=== PATIENT | female | born 1940 | race Caucasian/White ===

== ENCOUNTER 2018-03-30 09:27 | Day surgery (SDC) | payer MEDICARE, OTHER ==
[~2018-03-30 09:27] MED LIST: Cefuroxime 10 MG/ML SYRINGE EYELF SCH; Lidocaine 1% PF 2 ML SDV INJECT SCH; Pilocarpine 4% Ophth Soln 15 ML Bot EYELF SCH
[2018-03-30] MEDS: Polymyxin B/Trimethoprim 10 ML Bottle EYELF SCH ×3 (10:08→11:48)
[2018-03-30] MEDS: Brimonidine 0.2% Ophth Soln 5 ML Bottle EYELF SCH ×3 (10:14→11:48)
[2018-03-30] MEDS: Phenylephrine 2.5% Ophth Soln 2 ML Bot EYELF SCH ×5 (10:18→11:28)
[2018-03-30] MEDS: Tropicamide 1% Ophth Soln 3 ML Bottle EYELF SCH ×4 (10:23→11:07)
--- NOTE | 2018-03-30 10:34 | PCM.PREANE ---
Preanesthetic Assessment - Procedure Proposed Procedure: left eye cataract extraction with implant - Anesthesia/Transfusion/Family Hx Anesthesia History: Prior Anesthesia Without Reaction Family History of Anesthesia Reaction: No Transfusion History: No Prior Transfusion(s) Intubation History: Unknown - Review of Systems General: No Symptoms Pulmonary: No Symptoms Cardiovascular: No Symptoms Gastrointestinal: No Symptoms Neurological: No Symptoms Other: Reports: None - Physical Assessment NPO Status Date: 03/29/18 NPO Status Time: 18:00 O2 Sat by Pulse Oximetry: 95 Respiratory Rate: 16 Vital Signs: Last Vital Signs Temp 36.9 C 03/30/18 10:00 Pulse 63 03/30/18 10:00 Resp 16 03/30/18 10:00 BP 125/62 03/30/18 10:00 Pulse Ox 95 03/30/18 10:00 Height: 1.5 m Weight: 81.647 kg ASA Class: 2 Mental Status: Alert & Oriented x3 Airway Class: Mallampati = 2 Dentition: Reports: Normal Dentition, Missing Tooth/Teeth Thyro-Mental Finger Breadths: 3 Mouth Opening Finger Breadths: 5 ROM/Head Extension: Full Lungs: Clear to Auscultation, Normal Respiratory Effort Cardiovascular: Regular Rate, Regular Rhythm - Allergies Allergies/Adverse Reactions: Allergies Allergy/AdvReac Type Severity Reaction Status Date / Time No Known Allergies Allergy Verified 03/22/18 13:31 - Blood Blood Available: No - Acknowledgements Anesthesia Type Planned: MAC Pt an Appropriate Candidate for the Planned Anesthesia: Yes Alternatives and Risks of Anesthesia Discussed w Pt/Guardian: Yes Pt/Guardian Understands and Agrees with Anesthesia Plan: Yes PreAnesthesia Questionnaire - HOME MEDS Home Medications: Home Meds Enalapril Maleate 10 mg PO DAILY 03/30/18 [History] Metoprolol Succinate 100 mg PO DAILY 03/30/18 [History] - CURRENT (IN HOUSE) MEDS Current Meds: Current Medications Brimonidine Tartrate (Alphagan 0.2% Oph Soln) 0 ml EYELF ASDIRECTED CAMERON Stop: 03/30/18 18:00 Last Admin: 03/30/18 10:14 Dose: 1 drop Cefuroxime Sodium (Zinacef) 0 mg EYELF ASDIRECTED CAMERON Stop: 03/30/18 18:00 Lidocaine HCl (Xylocaine-Mpf 1%) 0 ml INJECT ASDIRECTED CAMERON Stop: 03/30/18 18:00 Phenylephrine HCl (Luke-Synephrine 2.5% Ophth Soln) 0 ml EYELF ASDIRECTED CAMERON Stop: 03/30/18 18:00 Last Admin: 03/30/18 10:18 Dose: 1 drop Pilocarpine HCl (Pilocar 4% Ophth Soln) 0 ml EYELF ASDIRECTED CAMERON Stop: 03/30/18 18:00 Polymyxin/Trimethoprim Sulfate (Polytrim Ophth Soln) 0 ml EYELF ASDIRECTED CAMERON Stop: 03/30/18 18:00 Last Admin: 03/30/18 10:08 Dose: 1 drop Tetracaine HCl (Tetracaine 0.5% Steri-Unit Maura) 0 ml EYELF ASDIRECTED CAMERON Stop: 03/30/18 18:00 Tropicamide (Mydriacyl 1% Ophth Soln) 0 ml EYELF ASDIRECTED CAMERON Stop: 03/30/18 18:00 Last Admin: 03/30/18 10:23 Dose: 1 drop
[2018-03-30] MEDS: Tetracaine HCl/PF 0.5% 4 ML Bottle EYELF SCH ×2 (11:15→11:35)
--- NOTE | 2018-03-30 12:05 | PCM48HPAN ---
Post Anesthesia Note - EVALUATION WITHIN 48HRS OF ANESTHETIC Vital Signs in Normal Range: Yes Patient Participated in Evaluation: Yes Respiratory Function Stable: Yes Airway Patent: Yes Cardiovascular Function Stable: Yes Pulse Rate: 68 SaO2: 99 Resp Rate: 16 Temperature: 37 C Blood Pressure: 133/63 Pulse Rate: 68
== END 2018-03-30 12:03 | disposition home or self-care (01) ==
LOC: JD.SDS 09:27
PROVIDERS: ATTEND Ophthalmology
DX: H25.813 Combined forms of age-related cataract, bilateral (principal); H40.003 Preglaucoma, unspecified, bilateral; H35.3131 Nonexudative age-related macular degeneration, bilateral, early dry stage; H16.223 Keratoconjunctivitis sicca, not specified as Sjogren's, bilateral; H16.103 Unspecified superficial keratitis, bilateral; H02.834 Dermatochalasis of left upper eyelid; H02.831 Dermatochalasis of right upper eyelid; I10 Essential (primary) hypertension; Z79.899 Other long term (current) drug therapy; Z98.890 Other specified postprocedural states
CPT/HCPCS: A9270-GY; C1780; J0697; J2001

== ENCOUNTER 2018-04-27 08:32 | Day surgery (SDC) | payer MEDICARE, OTHER ==
[~2018-04-27 08:32] MED LIST changes: -Cefuroxime 10 MG/ML SYRINGE EYELF SCH; -Pilocarpine 4% Ophth Soln 15 ML Bot EYELF SCH
[2018-04-27] MEDS ORDERED: Cefuroxime 10 MG/ML SYRINGE EYERT SCH (08:45)
[2018-04-27] MEDS ORDERED: Pilocarpine 4% Ophth Soln 15 ML Bot EYERT SCH (08:45)
[2018-04-27] MEDS: Polymyxin B/Trimethoprim 10 ML Bottle EYERT SCH ×3 (09:35→11:23)
[2018-04-27] MEDS: Brimonidine 0.2% Ophth Soln 5 ML Bottle EYERT SCH ×3 (09:40→11:23)
[2018-04-27] MEDS: Phenylephrine 2.5% Ophth Soln 2 ML Bot EYERT SCH ×5 (09:45→10:59)
[2018-04-27] MEDS: Tropicamide 1% Ophth Soln 3 ML Bottle EYERT SCH ×4 (09:51→10:41)
--- NOTE | 2018-04-27 09:52 | PCM.PREANE ---
Preanesthetic Assessment - Procedure Proposed Procedure: Right eye cataract extraction with IOL - Anesthesia/Transfusion/Family Hx Anesthesia History: Prior Anesthesia Without Reaction Family History of Anesthesia Reaction: No Transfusion History: No Prior Transfusion(s) Intubation History: Unknown - Review of Systems General: No Symptoms Pulmonary: No Symptoms Cardiovascular: Other (HTN) Gastrointestinal: No Symptoms Neurological: No Symptoms Other: Reports: None - Physical Assessment NPO Status Date: 04/26/18 NPO Status Time: 18:00 O2 Sat by Pulse Oximetry: 98 Respiratory Rate: 16 Vital Signs: Last Vital Signs Temp 36.7 C 04/27/18 09:27 Pulse 56 L 04/27/18 09:27 Resp 16 04/27/18 09:27 BP 133/55 L 04/27/18 09:27 Pulse Ox 98 04/27/18 09:27 Height: 1.5 m Weight: 77.111 kg ASA Class: 2 Mental Status: Alert & Oriented x3 Airway Class: Mallampati = 2 Dentition: Reports: Normal Dentition Thyro-Mental Finger Breadths: 3 Mouth Opening Finger Breadths: 3 ROM/Head Extension: Full Lungs: Clear to Auscultation, Normal Respiratory Effort Cardiovascular: Regular Rate, Regular Rhythm - Allergies Allergies/Adverse Reactions: Allergies Allergy/AdvReac Type Severity Reaction Status Date / Time No Known Allergies Allergy Verified 03/22/18 13:31 - Blood Blood Available: No Product(s) Available: None - Anesthesia Plan Pre-Op Medication Ordered: None Beta Dimitrios: Metoprolol Med Last Dose Date: 04/26/18 Med Last Dose Time: 18:00 - Acknowledgements Anesthesia Type Planned: MAC Pt an Appropriate Candidate for the Planned Anesthesia: Yes Alternatives and Risks of Anesthesia Discussed w Pt/Guardian: Yes Pt/Guardian Understands and Agrees with Anesthesia Plan: Yes PreAnesthesia Questionnaire - HOME MEDS Home Medications: Home Meds Enalapril Maleate 10 mg PO DAILY 03/30/18 [History] Metoprolol Succinate 100 mg PO DAILY 03/30/18 [History] Calcium Carbonate [Calcium] 1 tab PO DAILY 04/27/18 [History] Multivitamin [Multivitamins] 1 cap PO DAILY 04/27/18 [History] - CURRENT (IN HOUSE) MEDS Current Meds: Current Medications Brimonidine Tartrate (Alphagan 0.2% Oph Sol) 0 ml EYERT ASDIRECTED CAMERON Stop: 04/27/18 19:00 Last Admin: 04/27/18 09:40 Dose: 1 drop Cefuroxime Sodium (Zinacef) 0 mg EYERT ASDIRECTED CAMERON Stop: 04/27/18 19:00 Lidocaine HCl (Xylocaine-Mpf 1%) 0 ml INJECT ASDIRECTED CAMERON Stop: 04/27/18 19:00 Phenylephrine HCl (Luke-Synephrine 2.5% Ophth Soln) 0 ml EYERT ASDIRECTED CAMERON Stop: 04/27/18 19:00 Last Admin: 04/27/18 09:45 Dose: 1 drop Pilocarpine HCl (Pilocar 4% Ophth Soln) 0 ml EYERT ASDIRECTED CAMERON Stop: 04/27/18 19:00 Polymyxin/Trimethoprim Sulfate (Polytrim Ophth Soln) 0 ml EYERT ASDIRECTED CAMERON Stop: 04/27/18 19:00 Last Admin: 04/27/18 09:35 Dose: 1 drop Tetracaine HCl (Tetracaine 0.5% Steri-Unit Maura) 0 ml EYERT ASDIRECTED CAMERON Stop: 04/27/18 19:00 Tropicamide (Mydriacyl 1% Ophth Soln) 0 ml EYERT ASDIRECTED CAMERON Stop: 04/27/18 19:00
[2018-04-27] MEDS: Tetracaine HCl/PF 0.5% 4 ML Bottle EYERT SCH ×2 (10:49→11:04)
--- NOTE | 2018-04-27 11:30 | PCM48HPAN ---
Post Anesthesia Note - EVALUATION WITHIN 48HRS OF ANESTHETIC Vital Signs in Normal Range: Yes Patient Participated in Evaluation: Yes Respiratory Function Stable: Yes Airway Patent: Yes Cardiovascular Function Stable: Yes Hydration Status Stable: Yes Pain Control Satisfactory: Yes Nausea and Vomiting Control Satisfactory: Yes Mental Status Recovered: Yes Pulse Rate: 66 SaO2: 100 Resp Rate: 17 Temperature: 98.3 F Blood Pressure: 134/64
== END 2018-04-27 11:33 | disposition home or self-care (01) ==
LOC: JD.SDS 08:32
PROVIDERS: ATTEND Ophthalmology
DX: H25.811 Combined forms of age-related cataract, right eye (principal); H35.3131 Nonexudative age-related macular degeneration, bilateral, early dry stage; H35.363 Drusen (degenerative) of macula, bilateral; H16.223 Keratoconjunctivitis sicca, not specified as Sjogren's, bilateral; H16.103 Unspecified superficial keratitis, bilateral; I10 Essential (primary) hypertension; Z98.42 Cataract extraction status, left eye; Z96.1 Presence of intraocular lens; Z79.899 Other long term (current) drug therapy
CPT/HCPCS: 66984; C1780; J0697; J2001; A9270-GY

== ENCOUNTER 2021-02-26 10:14 | Emergency (ER) | payer MEDICARE, OTHER ==
--- NOTE | 2021-02-26 10:39 | EDM.PDOC ---
ED HPI GENERAL MEDICAL PROBLEM - General Chief Complaint: Neuro Symptoms/Deficits Stated Complaint: POSS STROKE/EYE COMPLAINT Time Seen by Provider: 02/26/21 10:30 Source of Information: Reports: Patient History Limitations: Reports: No Limitations - History of Present Illness INITIAL COMMENTS - FREE TEXT/NARRATIVE: 80-year-old female presents to the ED recognizing that there is been a change in her visual carballo over the last 24 hours. She believes it started yesterday morning somewhere between 9 and 10:00. She also appreciated when she had her first drink a coffee yesterday morning about 10:00 that she was leaking some coffee out the left side of her face. She states she could drive last night but the street signs did not seem quite normal. She denies any vertigo or headache. No recent falls or closed head injuries. She noticed no weakness in her upper extremities and she is right side dominant. No problems coordinating ability to feed herself. She has no past history of CVA. She wears eyeglasses. This morning things are perhaps a bit worse with her visual field status. She cannot comment that she is missing any one portion of the visual field. She does suffer from primary hypertension .No history of irregular heartbeat or atrial fibrillation. Onset: Sudden Onset Date: 02/26/21 (History suggest she had symptoms yesterday morning probably after awakening. They persisted throughout the day and are perhaps worse today.) Duration: Hour(s):, Getting Worse (Wren acuity seems to be getting worse on the right side.) Location: Reports: Face (Field changes particularly right eye. Mild right facial weakness) Quality: Reports: Other (No pain.) Severity: Mild (Mild visual field changes in the right eye she thinks) Improves with: Reports: None Worsens with: Reports: None Context: Reports: Other (Spontaneous occurrence noted yesterday morning). Denies: Activity, Exercise, Lifting, Sick Contact, Trauma Associated Symptoms: Reports: Weakness (Mild right facial weakness with smiling face pulls to the right). Denies: Confusion, Chest Pain ( or getting up for the day.), Cough, cough w sputum, Diaphoresis, Fever/Chills, Headaches, Loss of Appetite, Malaise, Nausea/Vomiting, Rash, Seizure, Shortness of Breath, Syncope Treatments MEDICAL LAB TECHNOLOGIST: Reports: Other (see below) - Related Data Allergies Allergy/AdvReac Type Severity Reaction Status Date / Time No Known Allergies Allergy Verified 02/26/21 10:26 Home Meds: Home Meds Enalapril Maleate 10 mg PO DAILY 03/30/18 [History] Metoprolol Succinate 100 mg PO DAILY 03/30/18 [History] Calcium Carbonate [Calcium] 1 tab PO DAILY 04/27/18 [History] Multivitamin [Multivitamins] 1 cap PO DAILY 04/27/18 [History] Mineral Oil/Petrolatum Oint [Lacri-Lube S.O.P Oint] 3.5 gm .XX DAILY #1 tube 02/26/21 [Rx] predniSONE [Prednisone] 20 mg PO BID #14 tablet 02/26/21 [Rx] valACYclovir [Valtrex] 1,000 mg PO TID #21 tab 02/26/21 [Rx] Past Medical History Cardiovascular History: Reports: Hypertension Social & Family History - Tobacco Use Tobacco Use Status *Q: Never Tobacco User - Recreational Drug Use Recreational Drug Use: No - Living Situation & Occupation Living situation: Reports: Occupation: Retired ED ROS GENERAL - Review of Systems Review Of Systems: See Below Constitutional: Denies: Fever, Chills, Malaise, Weakness, Fatigue, Decreased Appetite, Weight Loss HEENT: Reports: Glasses, Other (You will feel changes since yesterday morning.) Respiratory: Reports: No Symptoms Cardiovascular: Reports: Blood Pressure Problem Endocrine: Reports: No Symptoms GI/Abdominal: Reports: Constipation (Problems with constipation.) : Reports: Frequency, Incontinence (Mostly urge) Musculoskeletal: Reports: Neck Pain, Shoulder Pain, Back Pain, Joint Pain Skin: Reports: No Symptoms (At times.) Neurological: Reports: Weakness. Denies: Confusion, Dizziness, Headache, Numbness, Paresthesia, Pre-Existing Deficit, Syncope, Tingling, Tremors (Right hemifacial weakness appreciated yesterday morning.), Trouble Speaking Psychiatric: Reports: No Symptoms Hematologic/Lymphatic: Reports: No Symptoms Immunologic: Reports: No Symptoms ED EXAM, NEURO - Physical Exam Exam: See Below Exam Limited By: No Limitations General Appearance: Alert, WD/WN, No Apparent Distress, Other (Temperature is 36.3 degrees. Heart rate is 93 and sinus respiratory is 12 with O2 sats of 100%. BP elevated 1 9678 at time of initial exam. ) Eye Exam: Bilateral Eye: Normal Inspection (No scleral icterus or blepharal pallor.), PERRL (No gaze palsy) Throat/Mouth: Normal Inspection, Normal Lips, Normal Teeth, Normal Oropharynx, Other (Uvula) Head Exam: Atraumatic, Normocephalic Neck: Normal Inspection, Supple, Non-Tender, Full Range of Motion. No: Carotid Bruit, Lymphadenopathy (L), Lymphadenopathy (R) Respiratory/Chest: No Respiratory Distress, Lungs Clear, Normal Breath Sounds, No Accessory Muscle Use, Chest Non-Tender Cardiovascular: Normal Peripheral Pulses, Regular Rate, Rhythm, No Edema, No G allop, No JVD, No Murmur, No Rub GI/Abdominal: Normal Bowel Sounds, Soft, Non-Tender, No Organomegaly, No Mass, Pelvis Stable, Rebound Neurological: Alert, Normal Mood/Affect, Normal Dorsiflexion, Normal Plantar Flexion, Normal Gait, Normal Reflexes, Oriented x 3, Other (She does have some mild right facial droop on attempt to smile. There is no pronator drift. [id number] evaluation is normal as was [id number]. A stroke alert had been called on this lady and therefore she was sent to CT. CT exam shows some calcification in both basal ganglia no signs of st). No: CN II-XII Intact, Babinski DTR: 0: Achilles (R), Achilles (L), 1+: Bicep (R), Bicep (L), Patella (R), Patella (L) Back Exam: Normal Inspection, Full Range of Motion, Other. No: CVA Tenderness (L), CVA Tenderness (R) Extremities: Normal Inspection (Mild increased lordosis lumbar spine), Normal Range of Motion, Non-Tender, No Pedal Edema Psychiatric: Normal Affect, Normal Mood Skin Exam: Warm, Dry, Intact, Normal Color, No Rash Course - Vital Signs Last Recorded V/S: Last Vital Signs Temp 36.3 C 02/26/21 10:19 Pulse 93 02/26/21 10:19 Resp 12 02/26/21 10:19 BP 196/78 H 02/26/21 10:19 Pulse Ox 100 02/26/21 10:19 - Orders/Labs/Meds Orders: Active Orders 24 hr Category Date Time Status URINALYSIS W/MICROSCOPIC [UA W/MICROSCOPIC] [URIN] Stat Lab 04/22/21 10:38 Ordered Labs: Laboratory Tests 02/26/21 02/26/21 02/26/21 Range/Units 10:24 10:25 10:25 WBC 7.34 (3.98-10.04) K/mm3 RBC 4.62 (3.98-5.22) M/mm3 Hgb 14.4 (11.2-15.7) gm/dl Hct 45.2 H (34.1-44.9) % MCV 97.8 H (79.4-94.8) fl MCH 31.2 (25.6-32.2) pg MCHC 31.9 L (32.2-35.5) g/dl RDW Std Deviation 48.0 H (36.4-46.3) fL Plt Count 120 L (182-369) K/mm3 MPV 11.7 (9.4-12.3) fl Neut % (Auto) 43.5 (34.0-71.1) % Lymph % (Auto) 36.5 (19.3-51.7) % Rains % (Auto) 12.4 (4.7-12.5) % Eos % (Auto) 6.5 H (0.7-5.8) Baso % (Auto) 0.7 (0.1-1.2) % Neut # (Auto) 3.19 (1.56-6.13) K/mm3 Lymph # (Auto) 2.68 (1.18-3.74) K/mm3 Rains # (Auto) 0.91 H (0.24-0.36) K/mm3 Eos # (Auto) 0.48 H (0.04-0.36) K/mm3 Baso # (Auto) 0.05 (0.01-0.08) K/mm3 Manual Slide Review Abnormal smear PT 10.5 (9.7-12.0) SECONDS INR 0.98 APTT 24.5 (21.7-31.4) SECONDS Sodium (136-145) mEq/L Potassium (3.5-5.1) mEq/L Chloride (98-107) mEq/L Carbon Dioxide (21-32) mEq/L Anion Gap (5-15) BUN (7-18) mg/dL Creatinine (0.55-1.02) mg/dL Est Cr Clr Drug Dosing mL/min Estimated GFR (MDRD) (>60) mL/min BUN/Creatinine Ratio (14-18) Glucose (83-115) mg/dL POC Glucose 125 H (70-99) mg/dL Calcium (8.5-10.1) mg/dL Magnesium (1.8-2.4) mg/dl Total Bilirubin (0.2-1.0) mg/dL AST (15-37) U/L ALT (14-59) U/L Alkaline Phosphatase (46-116) U/L Troponin I (0.00-0.056) ng/mL C-Reactive Protein (<1.0) mg/dL NT-Pro-B Natriuret Pep (0-450) pg/mL Total Protein (6.4-8.2) g/dl Albumin (3.4-5.0) g/dl Globulin gm/dL Albumin/Globulin Ratio (1-2) Triglycerides (<150) mg/dL Cholesterol (<200) mg/dL LDL Cholesterol Direct (<100) mg/dL HDL Cholesterol (40-59) mg/dL 02/26/21 02/26/21 Range/Units 10:25 10:25 WBC (3.98-10.04) K/mm3 RBC (3.98-5.22) M/mm3 Hgb (11.2-15.7) gm/dl Hct (34.1-44.9) % MCV (79.4-94.8) fl MCH (25.6-32.2) pg MCHC (32.2-35.5) g/dl RDW Std Deviation (36.4-46.3) fL Plt Count (182-369) K/mm3 MPV (9.4-12.3) fl Neut % (Auto) (34.0-71.1) % Lymph % (Auto) (19.3-51.7) % Rains % (Auto) (4.7-12.5) % Eos % (Auto) (0.7-5.8) Baso % (Auto) (0.1-1.2) % Neut # (Auto) (1.56-6.13) K/mm3 Lymph # (Auto) (1.18-3.74) K/mm3 Rains # (Auto) (0.24-0.36) K/mm3 Eos # (Auto) (0.04-0.36) K/mm3 Baso # (Auto) (0.01-0.08) K/mm3 Manual Slide Review PT (9.7-12.0) SECONDS INR APTT (21.7-31.4) SECONDS Sodium 137 (136-145) mEq/L Potassium 3.8 (3.5-5.1) mEq/L Chloride 99 (98-107) mEq/L Carbon Dioxide 29 (21-32) mEq/L Anion Gap 12.8 (5-15) BUN 14 (7-18) mg/dL Creatinine 1.0 (0.55-1.02) mg/dL Est Cr Clr Drug Dosing 31.69 mL/min Estimated GFR (MDRD) 53 (>60) mL/min BUN/Creatinine Ratio 14.0 (14-18) Glucose 126 H (83-115) mg/dL POC Glucose (70-99) mg/dL Calcium 9.8 (8.5-10.1) mg/dL Magnesium 2.6 H (1.8-2.4) mg/dl Total Bilirubin 0.8 (0.2-1.0) mg/dL AST 22 (15-37) U/L ALT 24 (14-59) U/L Alkaline Phosphatase 83 (46-116) U/L Troponin I < 0.017 (0.00-0.056) ng/mL C-Reactive Protein 0.4 (<1.0) mg/dL NT-Pro-B Natriuret Pep 140 (0-450) pg/mL Total Protein 8.0 (6.4-8.2) g/dl Albumin 3.9 (3.4-5.0) g/dl Globulin 4.1 gm/dL Albumin/Globulin Ratio 1.0 (1-2) Triglycerides 79 (<150) mg/dL Cholesterol 201 H (<200) mg/dL LDL Cholesterol Direct 98 (<100) mg/dL HDL Cholesterol 87.0 H (40-59) mg/dL - Radiology Interpretation Free Text/Narrative:: 80-year-old female presents to the ED for evaluation of visual field changes that she first noted yesterday morning shortly after getting up. She cannot define a definitive area of her visual field that is missing. She stated that road signs do not appear normal when driving. She has no vertigo symptoms. She appreciated that she was losing some fluid out the corner of her right mouth with drinking fluids yesterday. Exam reveals that she does have mild left hemifacial weakness with loss of the normal nasolabial fold. Mouth pulls to the right side with smiling. The remainder of the neuro exam is completely normal with no extremity muscle weakness or change in motor power and tone. Gait is normal. She will go for CT scan. Routine labs will be obtained. I will come back and have a look at the back of her eye with ophthalmoscopy as well as test her visual carballo and do a ultrasound of her eye to look at the retina. Pressure was a little high when she came in. He will be reassessed. - Re-Assessments/Exams Free Text/Narrative Re-Assessment/Exam: 02/26/21 11:05 CT of the head without contrast has been completed. This was because a stroke alert was called on this lady. There are no prior intracranial imaging studies available. Basal ganglia calcification is seen bilaterally. Ventricles along with the basal cisterns and sulci over the convexities are mildly prominent. No other abnormal parenchymal densities are seen. No evidence of intracranial hemorrhage is seen. No midline shift or mass-effect is seen. Bone window settings were reviewed. Visualized mastoid and paranasal sinuses show nothing acute. Atherosclerotic calcification is seen within the carotid siphon. No acute calvarial abnormalities appreciated. 02/26/21 11:18 Visual field examination the patient's visual carballo are normal in fact somewhat better than mine. There is no evidence of glaucoma. Intraocular pressure was 12 on the right and 13 on the left. Ultrasound of the eye shows no retinal detachment. Indirect ophthalmoscopy reveals a normal retina without any vitreal hemorrhages. She cannot close the left eye completely and the left side of her face is slightly drooping compatible with Selby's palsy as although the other cranial nerves are functioning normally. Plan will therefore be antiviral medicine valacyclovir 1 g 3 times daily for the next 7 days and prednisone 20 mg by mouth twice daily for the next 7 days as well. Advised follow-up with Dr. Faust her primary care physician in 7 to 8 days time. She will use Lubriderm in the left eye at nighttime and patch the eye closed to prevent drying of the cornea on the left side. Advised tears are natural or other artificial tears 2 drops to the left eye 3 times daily to prevent drying out of the eye. Departure - Departure Time of Disposition: 11:20 Disposition: Home, Self-Care 01 Condition: Fair Clinical Impression: Selby palsy - Discharge Information *PRESCRIPTION DRUG MONITORING PROGRAM REVIEWED*: Not Applicable *COPY OF PRESCRIPTION DRUG MONITORING REPORT IN PATIENT ELOISA: Not Applicable Prescriptions: Mineral Oil/Petrolatum Oint [Lacri-Lube S.O.P Oint] 3.5 gm .XX DAILY #1 tube predniSONE [Prednisone] 20 mg PO BID #14 tablet valACYclovir [Valtrex] 1,000 mg PO TID #21 tab Instructions: Selby Palsy, Adult Referrals: Angelito Faust MD [Primary Care Provider] - Forms: ED Department Discharge Additional Instructions: Evaluation in the emergency room today in regards to visual field changes in the left eye and noticeable drooping of the left side of your face this morning. Symptoms were present yesterday but were considered milder. It is appreciated on visual field examination that your visual carballo are normal but you are unable to close her left eye completely due to muscle weakness around the eye. Similar there is muscle weakness around the lips which makes it difficult for you to drink fluids as a will run out the left side of your face due to the left-sided facial muscle weakness. There are no signs of a stroke. CT scan of the brain is essentially normal for your age. Treatment is antiviral medication valacyclovir 1 g 3 times daily for the next 7 days to try and reduce the inflammation of the 7th cranial nerve which is swollen and inflamed due to viral infection. Use prednisone 20 mg twice daily usually with breakfast and supper for the next 7 days to help further reduce inflammation of the nerve. The most important thing is that we keep your left eye lubricated since you cannot close the eye completely it will dry out overnight as the eye may remain completely open. Place a small thin line of Lacri-Lube ointment along the inner lower eyelid at bedtime and tape your left eye closed as instructed in the ED until able to close her eye completely normally. This will likely be somewhere between 3 and 8 weeks. You may use artificial tears 2 drops to the left eye 3 times daily to maintain hydration of the eye. Sepsis Event Note (ED) - Evaluation Sepsis Screening Result: No Definite Risk - Focused Exam Vital Signs: Vital Signs Temp Pulse Resp BP Pulse Ox 02/26/21 10:19 36.3 C 93 12 196/78 H 100 - My Orders Last 24 Hours: My Active Orders 02/26/21 10:38 URINALYSIS W/MICROSCOPIC [UA W/MICROSCOPIC] [URIN] Stat - Assessment/Plan Last 24 Hours: My Active Orders 02/26/21 10:38 URINALYSIS W/MICROSCOPIC [UA W/MICROSCOPIC] [URIN] Stat
--- NOTE | 2021-02-26 10:48 | CT ---
Head CT Technique: Multiple axial sections through the brain were obtained. Reconstructed coronal and sagittal images were obtained. Intravenous contrast was not utilized. Comparison: No prior intracranial imaging is available. Findings: Basal ganglia calcification is seen. Ventricles along with basal cisterns and sulci over the convexities are mildly prominent. No other abnormal parenchymal densities are seen. No evidence of intracranial hemorrhage is seen. No midline shift or mass-effect is seen. Bone window settings were reviewed. Visualized mastoid and paranasal sinuses show nothing acute. Atherosclerotic calcification is seen within the carotid siphon. No acute calvarial abnormality is appreciated. Impression: 1. Findings believed to be incidental as noted above. 2. Nothing acute is appreciated on noncontrast head CT study. Diagnostic code #2
--- NOTE | 2021-02-26 11:08 | CR ---
Chest: Portable view of the chest was obtained. Comparison: No prior chest imaging is available. Heart size is normal. Slight tortuosity of the thoracic aorta is seen. Lungs are clear with no acute parenchymal change. Bony structures are osteopenic but show nothing acute. Impression: 1. Nothing acute is seen on portable chest x-ray. Diagnostic code #2
== END 2021-02-26 11:43 | disposition home or self-care (01) ==
LOC: JD.ED 10:14
DX: G51.0 Bell's palsy (principal)
CPT/HCPCS: 36415; 70450; 70450-26; 71045; 71045-26; 80053; 82465; 82947; 83718; 83721; 83735; 83880; 84478; 84484; 85025; 85610; 85730; 86140; 99284; 99284-25

== ENCOUNTER 2021-09-22 10:12 | Day surgery (SDC) | payer MEDICARE, OTHER ==
[2021-09-22] MEDS: Brimonidine 0.2% Ophth Soln 5 ML Bottle EYERT SCH ×2 (10:41→11:53)
[2021-09-22] MEDS: Phenylephrine 2.5% Ophth Soln 2 ML Bot EYERT SCH ×3 (10:46→11:12)
[2021-09-22] MEDS: Tropicamide 1% Ophth Soln 15 ML Bottle EYERT SCH ×3 (10:51→11:17)
== END 2021-09-22 11:55 | disposition home or self-care (01) ==
LOC: JD.SDS 10:12
PROVIDERS: ATTEND Ophthalmology
DX: H26.491 Other secondary cataract, right eye (principal); H40.003 Preglaucoma, unspecified, bilateral; H35.363 Drusen (degenerative) of macula, bilateral; H35.3131 Nonexudative age-related macular degeneration, bilateral, early dry stage; I10 Essential (primary) hypertension; Z79.899 Other long term (current) drug therapy